=== PATIENT | male | born 1995 | race Hispanic/Latino ===

== ENCOUNTER 2024-12-18 13:17 | Emergency (ER) | payer OTHER ==
[~2024-12-18] VITALS: Ht 182.9 cm; Wt 79.8 kg
--- NOTE | 2024-12-18 13:24 | ERN ---
ED Note History of Present Illness Stated Complaint: PROBLEM URINATING Chief Complaint: Urinary Retention Time Seen by MD: 13:19 Dictation: PATIENT IS A 29-YEAR-OLD FEMALE COMING IN WITH LEFT FLANK PAIN THAT RADIATES TO LEFT LOWER QUADRANT DECREASED URINATION WITH LOW-GRADE FEVER FOR THE LAST WEEK. STATES HE WAS SEEN IN [place] FOR THE SAME COMPLAINT HOWEVER THEY DID A CHEST WORKUP AND TOLD HIM EVERYTHING WAS FINE. NO PRIMARY CARE DOCTOR. DENIES HISTORY OF UROLITHIASIS PYELONEPHRITIS OR UTI Allergies: Coded Allergies: Penicillins (Unverified Allergy, Unknown, 12/18/24) amoxicillin (Unverified Allergy, Unknown, 12/18/24) Past Medical History RN Note Reviewed/Agreed w/PFSH: Yes Review of System Dictation CONSTITUTIONAL: NEGATIVE EXCEPT FOR HPI FEVER HEAD/FACE: NEGATIVE EXCEPT FOR HPI EENT: NEGATIVE EXCEPT FOR HPI RESPIRATORY: NEGATIVE EXCEPT FOR HPI GASTROINTESTINAL/ABDOMINAL: NEGATIVE EXCEPT FOR HPI LEFT FLANK PAIN THAT RADIATES TO LEFT LOWER QUADRANT WITH DECREASED URINATION GENITOURINARY: NEGATIVE EXCEPT FOR HPI MUSCULOSKELETAL: NEGATIVE EXCEPT FOR HPI INTEGUMENTARY: NEGATIVE EXCEPT FOR HPI NEUROLOGICAL/PSYCH: NEGATIVE EXCEPT FOR HPI HEMATOLOGIC/LYMPHATIC: NEGATIVE EXCEPT FOR HPI ALL SYSTEMS NEGATIVE, EXCEPT NOTED ABOVE. 13 POINT REVIEW OF SYSTEMS ASSESSED AND ALL NEGATIVE EXCEPT FOR ABOVE. Initial Vital Sign VS Vital Signs Date Time Temp Pulse Resp B/P (MAP) Pulse Ox O2 Delivery O2 Flow Rate FiO2 12/18/24 13:19 99.0 97 18 122/73 99 Room Air Physical Exam Dictation VITAL SIGNS REVIEWED GENERAL APPEARANCE: ALERT, ORIENTED X 3, MILD ACUTE DISTRESS, WELL DEVELOPED, NOURISHED. HEAD AND FACE: NON-TRAUMATIC. EYES: PERRL, PINK CONJUNCTIVAS, EYELID NO TRAUMA, ANTERIOR CHAMBER WITH ARCUS SENILIS. EARS: PINNAS INTACT AND NO SIGNS OF TRAUMA OR ERYTHEMA EAR CANALS CLEAR AND NO DISCHARGE TM NO ERYTHEMA NOSE: NO DISCHARGE, NO BLEEDING. OROPHARYNX: MOUTH NORMAL, TONGUE PINK, PHARYNX CLEAR,NO ERYTHEMA, TONSILS NO EXUDATES, NO ABSCESSES NOTED, MUCOUS MEMBRANE MOIST NECK: SUPPLE, NON-TENDER, NO THYROMEGALY, NO MASSES, NO JVD, NO BRUITS BREAST:DEFERRED CHEST:NO TENDERNESS, NO CREPITUS, NO PARADOXICAL MOVEMENT, NO RETRACTIONS LUNGS:CLEAR, WELL-VENTILATED, SYMMETRIC, NO RALES, NO WHEEZING, NO RHONCHI, NO STRIDOR, GOOD BREATH SOUNDS BILATERALLY HEART: REGULAR RATE, REGULAR RHYTHM, NO MURMUR, NO GALLOPS VASCULAR: NO PERIPHERAL EDEMA, ABDOMEN: SOFT, POSITIVE BOWEL SOUNDS, NONDISTENDED, NO GUARDING, NONTENDER, NO REBOUND, NO MASSES NO HEPATOMEGALY, NO SPLENOMEGALY, NO CHA'S SIGN, NO HERNIAS. NEGATIVE CVAT RECTAL: DEFERRED GENITAL: DEFERRED NEUROLOGICAL: NORMAL SPEECH, MOTOR FUNCTION INTACT, SENSORY FUNCTION INTACT MUSCULOSKELETAL: NECK NONTENDER, FULL RANGE OF MOTION, BACK NONTENDER, FULL RAN GE OF MOTION, EXTREMITIES: NONTENDER, FULL RANGE OF MOTION SKIN: COLOR PINK, DRY, NO TURGOR, NO RASH, NO LACERATIONS, NO ABRASIONS, NO CONTUSIONS. LYMPHATIC: DEFERRED Results (Laboratory/Radiology) Laboratory/Radiology Laboratory Tests Test 12/18/24 13:39 12/18/24 13:54 Urine Color YELLOW (YELLOW) Urine Appearance CLEAR (CLEAR) Urine pH 6.0 (5.0-8.0) Urine Specific Gary 1.030 (1.001-1.031) Urine Protein 30 mg/dL (NEGATIVE) H Urine Glucose (UA) 300 mg/dL (NEGATIVE) H Urine Ketones 5 mg/dL (NEGATIVE) H Urine Occult Blood NEGATIVE (NEGATIVE) Urine Nitrate NEGATIVE (NEGATIVE) Urine Bilirubin NEGATIVE mg/dL (NEGATIVE) Urine Urobilinogen 0.2 mg/dL (0.2-1.0) Urine Leukocyte Esterase NEGATIVE Vishal/uL Urine RBC 0-1 /HPF (0-1) Urine WBC 0-1 /HPF (0-1) Urine Bacteria None /HPF (None Seen) White Blood Count 11.1 K/uL (4.8-10.8) H Red Blood Count 4.89 MIL/uL (4.50-6.20) Hemoglobin 13.3 g/dL (14.0-18.0) L Hematocrit 39.5 % (42-54) L Mean Corpuscular Volume 80.8 fL (79-99) Mean Corpuscular Hemoglobin 27.2 pg (27.0-33.0) Mean Corpuscular Hemoglobin Concent 33.7 g/dL (32.0-36.0) Red Cell Distribution Width 12.6 % (11.0-15.5) Platelet Count 224 K/uL (130-400) Mean Platelet Volume 10.6 fL (7.5-10.5) H Immature Granulocyte % (Auto) 0.4 % (0-1) Neutrophils (%) (Auto) 87.3 % (40.0-77.0) H Lymphocytes (%) (Auto) 6.5 % (21.0-51.0) L Monocytes (%) (Auto) 5.1 % (3.0-13.0) Eosinophils (%) (Auto) 0.4 % (0.0-8.0) Basophils (%) (Auto) 0.3 % (0.0-5.0) Neutrophils # (Auto) 9.7 K/uL (1.8-7.7) H Lymphocytes # (Auto) 0.7 K/uL (1.0-4.8) L Monocytes # (Auto) 0.6 K/uL (0.1-1.0) Eosinophils # (Auto) 0.05 K/uL (0.00-0.70) Basophils # (Auto) 0.03 K/uL (0.00-0.20) Absolute Immature Granulocyte (auto 0.05 K/uL (0-1) Nucleated Red Blood Cells 0.0 % (0.0-0.19) White Cell Morphology Comment See comments Sodium Level 139 mmol/L (136-145) Potassium Level 3.1 mmol/L (3.5-5.1) L Chloride Level 101 mmol/L (101-111) Carbon Dioxide Level 34 mmol/L (21-32) H Blood Urea Nitrogen 14 mg/dL (7-18) Creatinine 1.3 mg/dL (0.5-1.3) Glomerular Filtration Rate Calc 77 mL/min (>90) Random Glucose 125 mg/dL (70-105) H Total Calcium 8.6 mg/dL (8.5-10.1) Lipase 33 U/L (16-77) CT ABDOMEN/PELVIS W/O CONTRAST INDICATION: LEFT FLANK PAIN THAT RADIATES TO LEFT LOWER QUADRANT WITH DECREASED URINATION TECHNIQUE: CT ABDOMEN/PELVIS W/O CONTRAST. Oral contrast was not given. Coronal and sagittal reformats were performed. CT was performed with one or more of the following dose reduction techniques: Automated exposure control, adjustment of the mA and/or kV according to the patient's size, or use of the iterative reconstruction technique. Comparison: None. FINDINGS: The noncontrast nature this study limits evaluation of abdominal viscera. No pulmonary consolidation or pleural effusion is seen. There is hepatic steatosis. No calcified gallstone is seen. The spleen, pancreas, and adrenal glands are within normal limits. No hydronephrosis. The urinary bladder is partially collapsed. Reproductive organs are grossly within normal limits for patient's age. Fluid-filled loops of small bowel and colon suggesting enterocolitis in the proper clinical setting. Areas of wall thickening with mesenteric edema and inflammation seen in the lower abdomen and pelvis, surrounding the terminal ileum and parts of the sigmoid colon. The appendix is not clearly identified. Finding may simply represent enterocolitis, acute appendicitis is not excluded. No free abdominal air is seen. Trace of fluid seen in the pelvis. Visualized aorta is normal in caliber. No acute osseous findings. IMPRESSION: Fluid-filled loops of small bowel and colon suggesting enterocolitis in the proper clinical setting. Areas of wall thickening with mesenteric edema and inflammation seen in the lower abdomen and pelvis, surrounding the terminal ileum and parts of the sigmoid colon. The appendix is not clearly identified. Finding may represent inflammatory versus infectious enterocolitis, acute appendicitis is not excluded. Labs Reviewed?: Yes ED Course ED Course Orders Procedure Category Date Status Time Cbc With Differential LAB 12/18/24 Complete 13:21 Urinalysis Profile LAB 12/18/24 Complete 13:21 0.9%Nacl 1000ml (Ns PHA 12/18/24 Complete 1000ml) 13:30 Ketorolac PHA 12/18/24 Complete Tromethamine 30mg/Ml 13:30 Ct Abdomen/Pelvis W/O CT 12/18/24 Resulted Contrast 13:21 Lipase LAB 12/18/24 Complete 13:21 Basic Metabolic Panel LAB 12/18/24 Complete 13:21 Potassium Bicarb/Cit PHA 12/18/24 Logged Ac 25meq (K-Lyte Ta 16:30 Ketorolac 60mg/2ml PHA 12/18/24 Transmitted (Toradol 60mg/2ml) 16:30 Current Medications Medications (Trade) Dose Ordered Sig/Horacio Route PRN Reason Start Time Stop Time Status Last Admin Dose Admin Ketorolac Tromethamine (toRADol) 30 mg ONCE ONCE IVP 12/18/24 13:30 12/18/24 13:31 DC Potassium Bicarbonate (K-Lyte Tablet Eff 25 Meq Tablet.eff) 25 meq ONCE ONCE PO 12/18/24 16:30 12/18/24 16:31 UNV Sodium Chloride 1,000 ml @ 0 mls/hr ONCE ONCE IV 12/18/24 13:30 12/18/24 13:31 DC Vital Signs Date Time Temp Pulse Resp B/P (MAP) Pulse Ox O2 Delivery O2 Flow Rate FiO2 12/18/24 13:19 99.0 97 18 122/73 99 Room Air 1615/CT demonstrates probable infectious enterocolitis. No signs of urolithiasis diverticulitis. Patient will be discharged home with Cipro and Flagyl medication for pain and told follow up with his doctor Medical Decision Making MDM MDM: Differential diagnosis: Urolithiasis/pyelonephritis/ureteral colic/UTI/electrolyte imbalance/dehydration/ Rationale: Tests considered and ordered secondary to shared decision making include: Diverticulitis labs/radiology Previous outside records reviewed: Old ER visits. Risk of complication and/or morbidity or mortality of patient management: None Medications-Per medication reconciliation Need for hospitalization: Patient does not meet criteria for hospitalization. No Need for emergency major/minor surgery: No There are no social concerns with this patient. Prescription drug management Cipro/Flagyl/Bentyl Prescriptions will include symptomatic care Patient's prior external medical records from other ER visits were reviewed by me as indicated. Prior testing and results from previous visits were reviewed. Prior tests were taken into account with medical decision making and resource utilization, independent historian/historians were used to obtain complete medical history. I independently interpreted the test that were performed, results were reviewed by me and considered findings on radiology if ordered. Medical management and examination interpretation discussions were had by me with other qualified healthcare professionals as indicated for the patient's care. DX & DISP Disposition: Discharge Departure Impression: Primary Impression: Enterocolitis Additional Impressions: Hypokalemia, Glucosuria Condition: Stable Scripts Dicyclomine HCl (Bentyl) 20 Mg Tab 20 MG PO Q6HPRN PRN for Abdominal pain, #30 TAB Prov: STACIE MARTINEZ [employer] 12/18/24 Metronidazole (Metronidazole) 500 Mg Tablet 1 TAB PO TID for 10 Days, #30 TAB 0 Refills Prov: STACIE MARTINEZ [employer] 12/18/24 Ciprofloxacin HCl (Cipro) 500 Mg Tablet 1 TAB PO BID for 10 Days, #20 TAB 0 Refills Prov: STACIE MARTINEZ [employer] 12/18/24 Additional Instructions: Follow-up with primary care provider in 1 to 2 days. Take medications as directed here in the emergency room. Okay to continue home medications unless otherwise discussed during your visit in the emergency room today. Return to your nearest emergency room if symptoms worsen or if there is no improvement. Call 911 if you need immediate assistance. Take Tylenol or Motrin [id number] as needed and if no contraindications are present. Increase oral hydration. A wound culture or urine culture was ordered here in the emergency room department please follow-up with primary care provider and advise them to get repeat ports from our facility. If you had any Liborio wrap/splints that were applied here, please do not remove them until you see your primary care or specialty. Take antibiotics as directed until gone. Take Bentyl as directed for abdominal pain. Increase your water intake and see one of the doctors on the list provided you in the next 1-2 days for follow up and management. Time of Disposition: 16:16 I have reviewed the case, and I agree with, Diagnosis and Plan STACIE MARTINEZ NP Dec 18, 2024 13:24
[2024-12-18] MEDS ORDERED: 0.9%NACL 1000ML 1,000 ML IV ONE (13:30)
[2024-12-18] MEDS ORDERED: ketOROlac 30MG VIAL (30MG/ML) IVP ONE (13:30)
[2024-12-18 14:00] LABS: BASOPHILS # (AUTO) 0.03 K/uL (0.00-0.20); BASOPHILS % (AUTO) 0.3 % (0.0-5.0); EOSINOPHILS # (AUTO) 0.05 K/uL (0.00-0.70); EOSINOPHILS % (AUTO) 0.4 % (0.0-8.0); HEMATOCRIT 39.5 % (42-54); IMMATURE GRANULOCYTE ABSOLUTE 0.05 K/uL (0-1); LYMPHOCYTES # (AUTO) 0.7 K/uL (1.0-4.8); LYMPHOCYTES % (AUTO) 6.5 % (21.0-51.0); MEAN CORPUSCULAR HEMOGLOBIN 27.2 pg (27.0-33.0); MEAN CORPUSCULAR HGB CONC 33.7 g/dL (32.0-36.0); MEAN CORPUSCULAR VOLUME 80.8 fL (79-99); MONOCYTES # (AUTO) 0.6 K/uL (0.1-1.0); MONOCYTES % (AUTO) 5.1 % (3.0-13.0); NEUTROPHILS # (AUTO) 9.7 K/uL (1.8-7.7); NEUTROPHILS % (AUTO) 87.3 % (40.0-77.0); PLATELET COUNT (AUTO) 224 K/uL (130-400); RED BLOOD CELL COUNT(AUTO) 4.89 MIL/uL (4.50-6.20); RED CELL DISTRIBUTION WIDTH 12.6 % (11.0-15.5); WHITE BLOOD COUNT (AUTO) 11.1 K/uL (4.8-10.8)
[2024-12-18 14:03] LABS: APPEARANCE,URINE CLEAR (CLEAR); BILIRUBIN,URINE NEGATIVE (NEGATIVE); COLOR,URINE YELLOW (YELLOW); GLUCOSE, URINE (UA) 300 mg/dL (NEGATIVE); KETONES,URINE 5 mg/dL (NEGATIVE); LEUKOCYTE ESTERASE ,URINE NEGATIVE Leu/uL (NEGATIVE); NITRATE,URINE NEGATIVE (NEGATIVE); OCCULT BLOOD,URINE NEGATIVE (NEGATIVE); PROTEIN,URINE 30 mg/dL (NEGATIVE); UROBILINOGEN,URINE 0.2 mg/dL (0.2-1.0)
[2024-12-18 14:05] LABS: ADD UA MICROSCOPIC YES
[2024-12-18 14:07] LABS: MUCUS,URINE FEW LPF (None Seen); RBC,URINE 0-1 /HPF (0-1); WBC,URINE 0-1 /HPF (0-1)
[2024-12-18 14:09] LABS: CREATININE 1.3 mg/dL (0.5-1.3); POTASSIUM 3.1 mmol/L (3.5-5.1)
--- NOTE | 2024-12-18 14:13 | HMCIMG ---
CT ABDOMEN/PELVIS W/O CONTRAST INDICATION: LEFT FLANK PAIN THAT RADIATES TO LEFT LOWER QUADRANT WITH DECREASED URINATION TECHNIQUE: CT ABDOMEN/PELVIS W/O CONTRAST. Oral contrast was not given. Coronal and sagittal reformats were performed. CT was performed with one or more of the following dose reduction techniques: Automated exposure control, adjustment of the mA and/or kV according to the patient's size, or use of the iterative reconstruction technique. Comparison: None. FINDINGS: The noncontrast nature this study limits evaluation of abdominal viscera. No pulmonary consolidation or pleural effusion is seen. There is hepatic steatosis. No calcified gallstone is seen. The spleen, pancreas, and adrenal glands are within normal limits. No hydronephrosis. The urinary bladder is partially collapsed. Reproductive organs are grossly within normal limits for patient's age. Fluid-filled loops of small bowel and colon suggesting enterocolitis in the proper clinical setting. Areas of wall thickening with mesenteric edema and inflammation seen in the lower abdomen and pelvis, surrounding the terminal ileum and parts of the sigmoid colon. The appendix is not clearly identified. Finding may simply represent enterocolitis, acute appendicitis is not excluded. No free abdominal air is seen. Trace of fluid seen in the pelvis. Visualized aorta is normal in caliber. No acute osseous findings. IMPRESSION: Fluid-filled loops of small bowel and colon suggesting enterocolitis in the proper clinical setting. Areas of wall thickening with mesenteric edema and inflammation seen in the lower abdomen and pelvis, surrounding the terminal ileum and parts of the sigmoid colon. The appendix is not clearly identified. Finding may represent inflammatory versus infectious enterocolitis, acute appendicitis is not excluded.
[2024-12-18] MEDS ORDERED: DICY20TA2 PO (16:19)
[2024-12-18] MEDS ORDERED: METR-172 PO (16:19)
[2024-12-18] MEDS ORDERED: CIPR-278 PO (16:19)
[2024-12-18 16:39] VITALS: BP 124/76; PULSE 87; RESP 18; TEMP 98.3; O2SAT 99
[2024-12-18] MEDS: PoTASSium BIcarbonate/CIT AC 25 MEQ TABLET.EFF PO ONE (16:39)
[2024-12-18] MEDS: ketOROlac 60 MG VIAL (30MG/ML) IM ONE (16:39)
== END 2024-12-18 16:46 | disposition home or self-care (01) ==
LOC: EDH 13:17
DX: K52.9 Noninfective gastroenteritis and colitis, unspecified (principal); E87.6 Hypokalemia; R81 Glycosuria; Z88.0 Allergy status to penicillin
CPT/HCPCS: 99285; 74176; 80048; 83690; 85025; 81001; 36415; 96372; J1885

== ENCOUNTER 2025-06-08 16:51 | Emergency (ER) | payer OTHER ==
[~2025-06-08] VITALS: Ht 182.9 cm; Wt 79.4 kg
[~2025-06-08 16:51] MED LIST: CIPR-278 PO; DICY20TA2 PO; METR-172 PO
[2025-06-08 18:01] LABS: RAPID GROUP A STREP negative (NEGATIVE)
[2025-06-08 18:05] LABS: SARS-CoV-2, RNA, NAAT NEGATIVE SARS CoV-2 (NEGATIVE)
[2025-06-08 18:11] LABS: INFLUENZA TYPE A Negative For Type A (NEGATIVE); INFLUENZA TYPE B Negative For Type B (NEGATIVE)
[2025-06-08] MEDS ORDERED: METH4TAB3 PO (19:16)
--- NOTE | 2025-06-08 19:17 | ERN ---
General Chief Complaint: Fever Stated Complaint: FEVER Time Seen by MD: 17:06 Time Seen by Midlevel: 17:06 Source: patient History of Present Illness Initial Comments Patient is a 30-year-old male with no significant past medical history presenting to the emergency department for evaluation of flu-like symptoms that started earlier to this morning. Symptoms consist of a subjective fever, runny nose, and generalized body aches. Patient reports taking ibuprofen prior to arrival. Allergies: Coded Allergies: Penicillins (Unverified Allergy, Unknown, 12/18/24) amoxicillin (Unverified Allergy, Unknown, 12/18/24) Home Meds Active Scripts Dicyclomine HCl (Bentyl) 20 Mg Tab, 20 MG PO Q6HPRN PRN for Abdominal pain, #30 TAB Prov:STACIE MARTINEZ NP 12/18/24 Metronidazole (Metronidazole) 500 Mg Tablet, 1 TAB PO TID for 10 Days, #30 TAB 0 Refills Prov:STACIE MARTINEZ NP 12/18/24 Ciprofloxacin HCl (Cipro) 500 Mg Tablet, 1 TAB PO BID for 10 Days, #20 TAB 0 Refills Prov:STACIE MARTINEZ NP 12/18/24 Past Medical History Past Medical History: No Pertinent History Medical History Other: denies pmhx Past Surgical History: Other Surgical History Other: testicular reattachment sx ROS Dictation CONSTITUTIONAL: Negative except for HPI HEAD/FACE: Negative except for HPI EENT: Negative except for HPI RESPIRATORY: Negative except for HPI GASTROINTESTINAL/ABDOMINAL: Negative except for HPI GENITOURINARY: Negative except for HPI MUSCULOSKELETAL: Negative except for HPI INTEGUMENTARY: Negative except for HPI NEUROLOGICAL/PSYCH: Negative except for HPI HEMATOLOGIC/LYMPHATIC: Negative except for HPI All Systems Negative, Except as noted above. 13 point review of systems assessed and all negative except for above. Physical Exam Physical Exam Dictation Vital Signs reviewed General Appearance: Alert, oriented x 3, no acute distress, well developed, nourished. Head and Face: non-traumatic. Eyes: PERRL, pink conjunctivas, eyelid no trauma, anterior chamber with arcus senilis. Ears: Pinnas intact and no signs of trauma or erythema ear canals clear and no discharge TM no erythema Nose: No discharge, no bleeding. Oropharynx: Mouth normal, tongue pink, pharynx clear,no erythema, tonsils no exudates, no abscesses noted, mucous membrane moist Neck: Supple, non-tender, no thyromegaly, no masses, no JVD, no bruits Breast:Deferred Chest:No tenderness, no crepitus, no paradoxical movement, no retractions Lungs:Clear, well-ventilated, symmetric, no rales, no wheezing, no rhonchi, no stridor, good breath sounds bilaterally Heart: Regular rate, regular rhythm, no murmur, no gallops Vascular: no peripheral edema, Abdomen: Soft, positive bowel sounds, nondistended, no guarding, nontender, no rebound, no masses no hepatomegaly, no splenomegaly, no Cade's sign, no hernias. Rectal: Deferred Genital: Deferred Neurological: Normal speech, motor function intact, sensory function intact Musculoskeletal: Neck nontender, full range of motion, back nontender, full range of motion, Extremities: nontender, full range of motion Skin: Color pink, dry, no turgor, no rash, no lacerations, no abrasions, no contusions. Lymphatic: Deferred Results Laboratory and Microbiology Lab and Micro Result Laboratory Tests Test 06/08/25 17:33 Influenza Type A Antigen Negative For Type A Influenza Type B Antigen Negative For Type B SARS-CoV-2, RNA, NAAT NEGATIVE SARS CoV-2 Group A Streptococcus Rapid negative (NEGATIVE) Labs Reviewed?: Yes MDM MDM: Differential diagnosis: Viral illness, upper respiratory infection, There are no social concerns with this patient. Prescription drug management Prescriptions will include: Medrol pack Medical management and examination interpretation discussions were had by me with other qualified healthcare professionals as indicated for the patient's care. ED Course Orders Procedure Category Date Status Time Covid Rna Naat LAB 06/08/25 Complete 17:06 Influenza Type A & B, LAB 06/08/25 Complete Rapid 17:06 Rapid (Group A Strep) LAB 06/08/25 Complete 17:06 Vital Signs Date Time Temp Pulse Resp B/P (MAP) Pulse Ox O2 Delivery O2 Flow Rate FiO2 06/08/25 18:19 98.1 100 18 151/86 100 Room Air* 0 21 06/08/25 16:57 98.1 100 18 151/86 100 Room Air* 0 21 06/08/25 16:53 98.1 100 18 151/86 100 Room Air 0 DX & DISP Disposition: Discharge Departure Impression: Primary Impression: Viral syndrome Condition: Stable Scripts Methylprednisolone (Medrol) 4 Mg Tab.ds.pk 1 TAB PO AD for 6 Days, #21 TAB 0 Refills 6 on day 1 then reduce by one tablet daily until gone Prov: SAL RAY 06/08/25 Additional Instructions: You have tested negative for influenza a, influenza B, COVID-19, and strep. Your symptoms are most likely related to a viral illness. Please follow up with your primary care doctor in 2-3 days for repeat evalua tion. Referrals: SELF,REFERRAL (PCP) Time of Disposition: 19:16 I have reviewed the case, and I agree with, Diagnosis and Plan I performed the substantive portion of the visit. I have reviewed and personally made and approve the management plan that is documented in the note by myself or the VALERIA. I acknowledge for responsibility for the patient's management plan. SAL RAY Jun 08, 2025 19:17
[2025-06-08 19:48] VITALS: BP 137/80; PULSE 88; RESP 18; TEMP 98.1; O2SAT 100
== END 2025-06-08 19:49 | disposition home or self-care (01) ==
LOC: EDH 16:51
DX: B34.9 Viral infection, unspecified (principal); Z88.0 Allergy status to penicillin; Z20.822 Contact with and (suspected) exposure to COVID-19; Z79.899 Other long term (current) drug therapy
CPT/HCPCS: 87635; 87804; 87880; 99283